=== PATIENT | male | born 1960 | race Caucasian/White ===

== ENCOUNTER 2022-02-20 22:09 | Emergency (ER) | payer OTHER ==
[2022-02-20 22:33] LABS: HEMOGLOBIN 14.5 gm/dl (14.0-17.5); RED BLOOD COUNT 4.9 M/UL (4.20-5.50)
[2022-02-21] MEDS ORDERED: FLOMAX 0.4 MG0.4 MG PO (02:29)
[2022-02-21] MEDS ORDERED: ONDANSETRON ODT4 MG SL (02:29)
[2022-02-21] MEDS ORDERED: PERCOCET 5-3251 EACH PO (02:49)
== END 2022-02-21 03:02 | disposition home or self-care (01) ==
LOC: ER1 22:09
PROVIDERS: Emergency Medicine
DX: N13.2 Hydronephrosis with renal and ureteral calculous obstruction (principal); K76.9 Liver disease, unspecified; F17.220 Nicotine dependence, chewing tobacco, uncomplicated; Z88.0 Allergy status to penicillin
CPT/HCPCS: 80053; 81001; 83690; 85025; 87086; 96361; 96374; 96375; 99284; J1170; J1885; J2270; J2405; J2550

== ENCOUNTER → 2022-03-04 | Outpatient (CLI) | payer OTHER ==
[~2022-03-04] MED LIST: FLOMAX 0.4 MG0.4 MG PO; ONDANSETRON ODT4 MG SL; PERCOCET 5-3251 EACH PO
== END ==
LOC: CT 12:21
DX: K76.9 Liver disease, unspecified (principal); J43.9 Emphysema, unspecified; J84.10 Pulmonary fibrosis, unspecified; N28.9 Disorder of kidney and ureter, unspecified
CPT/HCPCS: 74170; Q9967

== ENCOUNTER → 2022-03-28 | Outpatient (CLI) | payer OTHER ==
[2022-03-28 09:15] LABS: HEMOGLOBIN 15.4 gm/dl (14.0-17.5); RED BLOOD COUNT 5.18 M/UL (4.20-5.50); WHITE BLOOD COUNT 6.6 K/UL (4.5-11.0)
[2022-03-28 09:38] LABS: BUN/CREATININE RATIO 22 (0-10)
== END ==
LOC: LAB 08:50
PROVIDERS: Surgery
DX: Z12.11 Encounter for screening for malignant neoplasm of colon (principal); J43.9 Emphysema, unspecified
CPT/HCPCS: 36415; 71046; 80048; 85025; 93005